=== PATIENT | male | born 1995 | race Caucasian/White ===

== ENCOUNTER 2022-11-04 20:14 | Emergency (ER) | payer OTHER, SELFPAY ==
[2022-11-04 20:23] VITALS: BP 137/77; PULSE 98; RESP 14; TEMP 36.7
--- NOTE | 2022-11-04 20:36 | ED.EAR ---
HPI - Ear Problem General Chief complaint: Ear Stated complaint: L ear pressure Time Seen by Provider: 11/04/22 20:19 Source: patient and RN notes reviewed Mode of arrival: ambulatory Limitations: no limitations History of Present Illness HPI Narrative: Patient states he has been having problems for about 1 month. He says that he has been on amoxicillin twice and a course of steroids. They keep telling me just has an ear infection. He has appointment with ENT but not until February. He continues to have pain in the left ear decreased hearing. MD Complaint: ear pain and other ( Ear pressure) Location: left ear Duration: constant Severity: moderate Discharge from ear: Reports no Associated symptoms ear: decreased hearing Treatment prior to arrival: none Related Data Allergies Allergy/AdvReac Type Severity Reaction Status Date / Time No Known Allergies Allergy Verified 11/04/22 21:08 Review of Systems Review of Systems: All systems reviewed & are unremarkable except as noted in HPI and below PMFSH Past Medical History Medical History (Updated 11/04/22 @ 20:58 by Dimas Willard MD) No active medical problems Surgical History Surgical History (Updated 11/04/22 @ 20:53 by Dimas Willard MD) No pertinent past surgical history Social History Social History (Updated 11/04/22 @ 20:53 by Dimas Willard MD) Smoking status: Current every day smoker Tobacco type: e-cigarettes/vaping Exam Const: General: healthy appearing, no acute distress and alert Nutritional Appearance: well nourished Orientation/consciousness: patient oriented x3 Limitations: no limitations HENMT: Head: normal to inspection Ears: external ears normal, TM normal on the right and TM abnormal bullous on the left ( with loculations), wth effusion purulent on the left and erythematous on the left Face/Nose/Sinus: Normal external nose present Face and sinus: normal facial exam Mouth: Yes moist mucous membranes Eyes: Conjunctivae: conjunctivae normal Pupils: Equal, round and reactive pupils present EOM: EOMs intact bilaterally Neck: Neck: normal visual inspection Resp: Effort & Inspection: normal respiratory effort Auscultation: clear to auscultation bilaterally Cardio: Rate: regular rate Rhythm: regular rhythm GI: GI Palp: Yes Soft to palpation and No Tenderness to palpation present (GI) Auscultation: normal bowel sounds Back/Spine/Pelvis: Cervical Spine: cervical ROM normal Thoracic/Lumbar Spine: thoraco-lumbar ROM normal Skin: General skin exam: normal color Rashes: no rashes Neuro: General: patient oriented x3, moves all extremities, no focal motor deficits and CN's II-XI intact bilaterally Speech: normal speech Gait exam (Neuro): Normal gait present Extrem: General: normal to inspection and no clubbing, cyanosis or edema Psych: Mental Status: mental status grossly normal Affect: normal affect Attitude: cooperative Course Vital Signs Vital signs: Vital Signs Temperature 36.7 C 11/04/22 20:23 Pulse Rate 98 11/04/22 20:23 Respiratory Rate 14 11/04/22 20:23 Blood Pressure 137/77 11/04/22 20:23 Oxygen Delivery Room Air 11/04/22 20:23 Temperature 37.2 C 11/04/22 21:08 Pulse Rate 90 11/04/22 21:08 Respiratory Rate 18 11/04/22 21:08 Blood Pressure 130/80 11/04/22 21:08 Pulse Oximetry 99 11/04/22 21:08 Oxygen Delivery Room Air 11/04/22 21:08 Medical Decision Making Differential Diagnosis Differential Diagnosis: Chronic otitis media, recurrent otitis media, tympanic membrane perforation, loculated effusion in the TM. Vital Signs Vital Signs: Vital Signs Temperature 36.7 C 11/04/22 20:23 Pulse Rate 98 11/04/22 20:23 Respiratory Rate 14 11/04/22 20:23 Blood Pressure 137/77 11/04/22 20:23 Oxygen Delivery Room Air 11/04/22 20:23 Temperature 37.2 C 11/04/22 21:08 Pulse Rate 90 11/04/22 21:08 Respiratory Rate 18 11/04/22 21:08 Blood Pre
[2022-11-04 21:08] VITALS: BP 130/80; PULSE 90; RESP 18; TEMP 37.2; O2SAT 99
== END 2022-11-04 21:11 | disposition home or self-care (01) ==
LOC: CHSED 21:09
PROVIDERS: Emergency Provider Emergency Medicine; PCP Family Medicine
DX: H66.12 Chronic tubotympanic suppurative otitis media, left ear (principal); F17.290 Nicotine dependence, other tobacco product, uncomplicated
CPT/HCPCS: 99283